=== PATIENT | female | born 1975 | race Caucasian/White ===

== ENCOUNTER 2023-08-11 11:23 | Emergency (ER) | payer OTHER, SELFPAY ==
[2023-08-11 11:34] VITALS: BP 133/89; PULSE 114; RESP 30; TEMP 36.8; O2SAT 95; BMI 35.4
--- NOTE | 2023-08-11 12:02 | CRLHL7_ITS ---
For Patients: As a result of the Century Cures Act, medical imaging exams and procedure reports are released immediately into your electronic medical record. You may view this report before your referring provider. If you have questions, please contact your health care provider. Indication: Cough. Wheeze. Technique: Two-view upright PA and lateral chest x-ray Comparison: None available Findings: Lungs clear. Heart and pulmonary vascularity within normal limits. No pleural fluid or pneumothorax. No musculoskeletal pathology identified. Impression: Negative chest x-ray. No radiographic evidence for pneumonia. Dictated by Chance Meza MD @ 08/11/2023 1:10:21 PM (Electronically Signed)
--- NOTE | 2023-08-11 12:08 | ED.GENADULT ---
HPI - General Adult General Date Seen: 08/11/23 Chief complaint: Cough Stated complaint: difficulty breathing Time Seen by Provider: 08/11/23 11:27 Source: patient Mode of arrival: ambulatory Limitations: no limitations History of Present Illness HPI narrative: Patient is a 47-year-old woman who reports respiratory symptoms for 2-3 weeks now. She was seen originally at [facility] on July 26, I reviewed her records on her phone and she had a fairly extensive workup including an EKG, labs, including a troponin 1 and D-dimer both of which were normal, chest x-ray which was negative. She was noted to have bronchospasm, discharged with a nebulizer, inhaler, and doxycycline. She reports that a few days after that she had her wisdom teeth removed and was started on amoxicillin. She is worried that some how the medications are cancelling each other out because she still feels short of breath. She is coughing, cough is nonproductive. She has not had fevers and not had chest pain. She says initially the nebs felt like they were helping but she no longer feels like there much benefit. She did feel better when she was on the steroid but she finished that quite a while ago. She does have a history of tobacco use, she says she quit for the most part a couple of years ago after smoking for number of years. Now she has a cigarette every once in a while when she is very stressed. She did not have a previous diagnosis of asthma or COPD. She also had pulmonary function tests through [facility] which were normal and no change with bronchodilators. She notes that she was advised to follow up with her primary doctor, but says that her doctor was not available. Related Data Previous Rx's Medication Instructions Recorded budesonide 180 mcg/actuation 2 inh inhalation QAM #1 ea 08/11/23 breath activated powder inhaler (Pulmicort Flexhaler) prednisone 20 mg tablet 20 mg PO BID #10 tabs 08/11/23 Allergies Allergy/AdvReac Type Severity Reaction Status Date / Time amoxicillin Allergy Verified 08/11/23 11:33 Review of Systems Status of ROS: Reports: 10 or more systems reviewed and unremarkable except as noted in History and below PFSH PFSH Social History Smoking Status: Former smoker Do you use any of these nicotine containing products: None Second hand tobacco smoke exposure: No How often do you have a drink containing alcohol: 2-4 times a month How many standard drinks containing alcohol do you have on a typical day: 1 or 2 How often do you have six or more drinks on one occasion: Never AUDIT-C Alcohol total score: 2 Non-prescribed substance use: denies use service: No Exam Narrative: Exam Narrative: Vital signs as noted above. In general, an alert, nontoxic woman. She seems a little anxious. Head: Normocephalic, atraumatic. Eyes: Pupils are equal reactive. Extraocular movements are full. Conjunctivae are normal. ENT: Mucous membranes are moist. Throat is normal. Neck: Supple without lymphadenopathy. Heart: Tachycardic and regular without murmur. Lungs: Scattered wheezes bilaterally. No crackles, no increased work of breathing. Abdomen: Soft and nontender. No organomegaly. Extremities: Well perfused. No edema. No calf tenderness. Pulses intact. Neurologic: Patient is alert and oriented to person and place. Speech is fluent. Face is symmetric. Moves all extremities equally. Affect: Anxious. Skin: Warm and dry. Well perfused. Const: Vital Signs, click to edit/add: Vital Signs - 24 hr 08/11/23 11:34 Temperature 98.3 F Pulse Rate [Pulse Oximeter] 114 H Respiratory Rate 30 H Blood Pressure [Ri ght Forearm] 133/89 Pulse Oximetry 95 Oxygen Delivery Me thod Room Air Documenting provider has reviewed patient's vital signs: yes Course Course ED Course: She is tachycardic and tachypneic here, afebrile and O2 sats are reasonable at 95% on room air. She definitely has evidence of ongoing bronchospasm, will give a DuoNeb and restart her on prednisone. I think it is worthwhile to recheck a few things, chest x-ray and few basic labs. She had a DuoNeb here as well as a dose of prednisone. She does feel improved and wheezes are improved as well. Her blood work is again normal, white blood cell count is 10.4, she does have an eosinophilia. D-dimer was normal electrolytes notable only for a CO2 of 19. CRP is 1, BNP is 55 and COVID is negative. Chest x-ray remains negative as well by my review, final radiology read is likewise negative. I have reviewed all this with her. Is possible that she has a component of COPD, regardless I have strongly recommended against any cigarette use. I am going to start her on a steroid inhaler, will have her on prednisone for a few days and then see if she does better on an inhaled steroid. She can continue to use albuterol as needed as well. I have asked her to follow up with her primary clinic in the next week or so, if her doctor is not available she may need to see an alternate provider. Return at any time for acute worsening. Vital Signs Vital signs: Initial Vital Signs Temperature 98.3 F 08/11/23 11:34 Temperature Source Temporal Artery Scan 08/11/23 11:34 Pulse Rate 114 H 08/11/23 11:34 Pulse Rhythm Regular 08/11/23 11:34 Respiratory Rate 30 H 08/11/23 11:34 Blood Pressure 133/89 08/11/23 11:34 Blood Pressure Mean 103 08/11/23 11:34 Blood Pressure Position Supine 08/11/23 11:34 Pulse Oximetry 95 08/11/23 11:34 Oxygen Delivery Method Room Air 08/11/23 11:34 Vital Signs Temperature 98.3 F 08/11/23 11:34 Pulse Rate 114 H 08/11/23 11:34 Respiratory Rate 30 H 08/11/23 11:34 Blood Pressure 133/89 08/11/23 11:34 Pulse Oximetry 95 08/11/23 11:34 Oxygen Delivery Method Room Air 08/11/23 11:34 Temperature 98.3 F 08/11/23 11:34 Pulse Rate 114 H 08/11/23 11:34 Respiratory Rate 30 H 08/11/23 11:34 Blood Pressure 133/89 08/11/23 11:34 Pulse Oximetry 95 08/11/23 11:34 Oxygen Delivery Method Room Air 08/11/23 11:34 Medical Decision Making Lab Data Labs: Lab Results 08/11/23 08/11/23 Range/Units 11:27 12:14 WBC 10.42 (4.50-11.00) K/uL RBC 4.92 (4.00-5.20) m/uL Hgb 14.1 (12.0-16.0) gm/dL Hct 42.3 (33.0-51.0) % MCV 86 (80-100) fL MCH 29 (26-34) pg MCHC 33 (32-36) gm/dL RDW Coeff of Timothy 13.8 (11.5-15.5) % Plt Count 234 (140-440) K/uL Neut % (Auto) 63.3 (42.0-72.0) % Lymph % (Auto) 18.2 L (20-44) % [place] % (Auto) 4.9 (0.0-11.0) % Eos % (Auto) 13.2 H (0.0-7.0) % Baso % (Auto) 0.3 (0.0-3.0) % Neut # (Auto) 6.59 (1.7-7.0) K/uL Lymph # (Auto) 1.90 (0.90-2.90) K/uL [place] # (Auto) 0.50 (0.00-0.90) K/UL Eos # (Auto) 1.40 H (0.00-0.50) K/uL Baso # (Auto) 0.03 (0.00-0.30) K/uL Abs Immat Gran (auto) 0.01 (0.00-0.30) K/uL Imm/Tot Granulo (auto) 0.1 % D-Dimer Quant (PE/DVT) 0.31 (0.00-0.50) ug/ml Sodium 140 (135-149) mmol/L Potassium 4.0 (3.6-5.1) mmol/L Chloride 106 (96-114) mmol/L Carbon Dioxide 19 L (20-32) mmol/L Anion Gap 15 (7-15) mEq/L BUN 4 L (5-24) mg/dL Creatinine 0.7 (0.5-1.5) mg/dL Estimated Creat Clear 83.07 Estimated GFR 108 ml/min Glucose 80 (60-115) mg/dL Calcium 9.4 (8.4-10.6) mg/dL C-Reactive Protein 1.0 (0.5-1.0) mg/dL NT-Pro-B Natriuret Pep 55 pg/mL SARS-CoV-2 (PCR) Negative SARS-CoV-2 (Negative) Influenza Type A (PCR) Negative PCR FLU A (Negative) Influenza Type B (PCR) Negative PCR FLU B (Negative) RSV (PCR) Negative PCR RSV (Negative) Discharge Plan Discharge Clinical Impression: Acute bronchospasm Patient Disposition: Home, Self-Care Condition: Improved Instructions: Bronchospasm (ED) Additional Instructions: Prednisone as prescribed. Use albuterol as needed. Steroid inhaler as prescribed. Please make an appointment to follow-up with your primary clinic in the next week or so. Return for acute worsening. Prescriptions: New prednisone 20 mg tablet 20 mg PO BID Qty: 10 0RF Pulmicort Flexhaler 180 mcg/actuation aerosol powdr breath activated 2 inh inhalation QAM Qty: 1 2RF Follow Up/Referrals: Provider,Not a Local [Primary Care Provider] - Stand Alone Forms: [employer] Info Instructions
[2023-08-11 12:12] LABS: PCR FLU A Negative PCR FLU A (Negative); PCR FLU B Negative PCR FLU B (Negative); PCR RSV Negative PCR RSV (Negative)
[2023-08-11] MEDS: predniSONE 20 MG TABLET 60 MG PO (12:17)
[2023-08-11 12:25] LABS: Basophils Absolute Auto 0.03 K/uL (0.00-0.30); Basophils Percent Auto 0.3 % (0.0-3.0); Eosinophils Percent Auto 13.2 % (0.0-7.0); Hematocrit 42.3 % (33.0-51.0); Hemoglobin* 14.1 gm/dL (12.0-16.0); Immature Granulocytes Abs Auto 0.01 K/uL (0.00-0.30); Immature Granulocytes Pct Auto 0.1 %; Lymphocytes Percent Auto 18.2 % (20-44); Mean Corpuscular HGB Conc 33 gm/dL (32-36); Mean Corpuscular Hemoglobin 29 pg (26-34); Mean Corpuscular Volume 86 fL (80-100); Monocytes Percent Auto 4.9 % (0.0-11.0); Neutrophils Absolute Auto 6.59 K/uL (1.7-7.0); Neutrophils Percent Auto 63.3 % (42.0-72.0); Platelet Count* 234 K/uL (140-440); RDW Coefficient of Variation % 13.8 % (11.5-15.5); Red Blood Count 4.92 m/uL (4.00-5.20); White Blood Count* 10.42 K/uL (4.50-11.00)
[2023-08-11 12:27] LABS: Slide Review Reflex No
[2023-08-11] MEDS: IPRAT-ALBUT 0.5-2.5 MG/3 ML NEB 1 NEB IH (12:30)
[2023-08-11 12:35] LABS: Chloride* 106 mmol/L (96-114)
[2023-08-11 12:36] LABS: Sodium* 140 mmol/L (135-149)
[2023-08-11 12:38] LABS: Creatinine* 0.7 mg/dL (0.5-1.5); Est. Creatinine Clearance* 83.07; Estimated Glomerular Filt Rate 108 ml/min
[2023-08-11 12:39] LABS: Anion Gap 15 mEq/L (7-15); Blood Urea Nitrogen* 4 mg/dL (5-24); Calcium* 9.4 mg/dL (8.4-10.6); Carbon Dioxide* 19 mmol/L (20-32); Glucose* 80 mg/dL (60-115)
[2023-08-11 12:40] LABS: D Dimer Quantitative* 0.31 ug/ml (0.00-0.50)
[2023-08-11 12:57] LABS: NT Pro B Type NatriureticPept* 55 pg/mL
[2023-08-11 12:58] LABS: SARS PCR* Negative SARS-CoV-2 (Negative)
[2023-08-11 13:00] VITALS: RESP 20
== END 2023-08-11 13:25 | disposition home or self-care (01) ==
PROVIDERS: Emergency Provider Emergency Medicine
DX: J98.01 Acute bronchospasm (principal)
CPT/HCPCS: 36415; 71046; 80048; 83880; 85025; 85379; 86140; 87631; 94640; 99284; J7512